=== PATIENT | male | born 1990 | race Caucasian/White ===

== ENCOUNTER 2018-11-12 15:48 | Emergency (ER) | payer BC ==
[~2018-11-12] VITALS: Ht 157.5 cm; Wt 59.0 kg
[2018-11-12 15:51] VITALS: Ht 157.5 cm; Wt 59.0 kg
[2018-11-12 17:15] LABS: microscopic required? NO
[2018-11-12 17:19] LABS: urine erythrocyte NEGATIVE (NEGATIVE)
[2018-11-12 17:23] LABS: BASOPHIL % 0.2 % (0-2); PLATELET COUNT 299 x10^3mcL (130-400); RED CELL DISTRIBUTION WIDTH 13.2 % (11.5-14.5)
[2018-11-12 17:31] LABS: AMPHETAMINE QUAL UR NONE DETECTED (See below)
[2018-11-12 17:31] LABS: CALCIUM 9.4 mg/dL (8.5-10.1); CARBON DIOXIDE 30.2 mmol/L (21-32); CHLORIDE SERUM 100 mmol/L (98-107); CREATININE SERUM 1.1 mg/dL (0.7-1.3); GFR1 > 60 mL/min; GLUCOSE SERUM 102 mg/dL (74-106); POTASSIUM SERUM 3.6 mmol/L (3.5-5.1); SODIUM SERUM 138 mmol/L (136-145)
[2018-11-12 17:37] LABS: ALBUMIN 4.2 g/dL (3.4-5.0); ALKALINE PHOSPHATASE 81 U/L (46-116); ALT/SGPT 48 U/L (16-63); AST/SGOT 18 U/L (15-37); BILIRUBIN TOTAL 0.2 mg/dL (0.20-1.00); HDL CHOLESTEROL 45 mg/dL (40-60); LIPASE 155 IU/L (73-393); TOTAL PROTEIN, SERUM 8.1 g/dL (6.4-8.2); TRIGLYCERIDES 118 mg/dL (<150)
[2018-11-12 17:42] LABS: CHOLESTEROL 244 mg/dL (<200); CHOLESTEROL/HDL RATIO 5.4
[2018-11-12 18:17] LABS: FREE T4 0.71 ng/dL (0.76-1.46); FREE THYROXINE INDEX 2.5 ug/dL (1.4-4.5); T4(THYROXINE) 6.9 ug/dL (4.7-13.3)
[2018-11-12 18:38] LABS: T3 TOTAL 1.16 ng/mL
[2018-11-12 18:59] VITALS: BP 134/76
== END 2018-11-12 18:59 | disposition home or self-care (01) ==
LOC: ED 15:48
PROVIDERS: Specialist
DX: R07.89 Other chest pain (principal); F41.9 Anxiety disorder, unspecified; F14.10 Cocaine abuse, uncomplicated; F32.9 Major depressive disorder, single episode, unspecified
CPT/HCPCS: 83880; 84439; J7030; Q0092